=== PATIENT | male | born 1995 | race Caucasian/White ===

== ENCOUNTER 2018-11-21 16:17 | Inpatient (IN) | payer BC ==
[~2018-11-21] VITALS: Ht 172.7 cm; Wt 71.7 kg
[2018-11-21] MEDS ORDERED: AMOX1TAB16 PO (16:46)
[2018-11-21] MEDS ORDERED: CLINDAMYCIN PHOSPHATE IV 900 MG in IV DEXTROSE 5% 100 ML IV ONE (17:45)
[2018-11-21] MEDS ORDERED: ONDANSETRON 4 MG/2 ML VIAL IV ONE ×2 (17:45→19:30)
[2018-11-21] MEDS ORDERED: IV NORMAL SALINE 1000 ML BAG IV ONE (17:45)
[2018-11-21] MEDS ORDERED: HYDROMORPHONE 1 MG/1 ML DISP.SYRIN IV ONE ×3 (17:45→21:00)
[2018-11-21] MEDS ORDERED: CLINDAMYCIN PHOSPHATE 900 MG/6 ML VIAL ONE (17:48)
[2018-11-21] MEDS ORDERED: ONDANSETRON 4 MG/2 ML VIAL ONE ×2 (17:49→19:39)
[2018-11-21] MEDS ORDERED: HYDROMORPHONE 1 MG/1 ML DISP.SYRIN ONE ×3 (17:49→21:03)
[2018-11-21] MEDS ORDERED: IOHEXOL 300MG/ML 100 ML INFUS..BTL ONE (17:52)
[2018-11-21] MEDS ORDERED: SWABABLE VALVE TRANSFER SET EA MC ONE (17:52)
[2018-11-21] MEDS ORDERED: IV NORMAL SALINE 250 ML IV ONE (17:53)
[2018-11-21 18:16] LABS: BASOPHILS # (AUTO) 0.1 K/uL (0.0-8.0); BASOPHILS % (AUTO) 0.6 % (0.0-2.0); EOSINOPHILS # (AUTO) 0.4 K/uL (0.0-0.7); EOSINOPHILS % (AUTO) 4.3 % (0.0-7.0); HEMATOCRIT 41.3 % (36.7-47.1); HEMOGLOBIN 14.2 g/dL (12.5-16.3); LYMPHOCYTES # (AUTO) 2.2 K/uL (20.0-40.0); LYMPHOCYTES % (AUTO) 23.9 % (20.5-51.5); MEAN CORPUSCULAR HEMOGLOBIN 30.9 uug (23.8-33.4); MEAN CORPUSCULAR HGB CONC 34 g/dL (32.5-36.3); MEAN CORPUSCULAR VOLUME 89.6 fL (73.0-96.2); MONOCYTES # (AUTO) 0.8 K/uL (2.0-10.0); MONOCYTES % (AUTO) 8.6 % (0.0-11.0); NEUTROPHILS # (AUTO) 5.8 K/uL (1.8-8.9); NEUTROPHILS % (AUTO) 62.6 % (38.5-71.5); PLATELET COUNT (AUTO) 322 K/uL (152-348); RED BLOOD CELL COUNT(AUTO) 4.61 MIL/uL (4.06-5.63); WHITE BLOOD COUNT (AUTO) 9.3 K/uL (3.6-10.2)
--- NOTE | 2018-11-21 18:21 | NUR ---
Patient is resting comfortably on gurney while watching bedside TV. Patient's girlfriend [email or web address].
[2018-11-21 18:26] LABS: POTASSIUM 3.9 mmol/L (3.5-5.1)
[2018-11-21 18:30] LABS: BILIRUBIN,DIRECT 0.2 mg/dL (0.0-0.2); BILIRUBIN,TOTAL 0.5 mg/dL (0.2-1.0); TOTAL PROTEIN, SERUM 7.3 g/dL (6.4-8.2)
--- NOTE | 2018-11-21 18:55 | NUR ---
Patient is in CT scan@this time.
--- NOTE | 2018-11-21 19:06 | NUR ---
Patient is still in CT scan, endorsed to DARIELA Morris accordingly
--- NOTE | 2018-11-21 19:15 | NUR ---
Paged [employer] for panel call.
[2018-11-21] MEDS ORDERED: diphenhydrAMINE 50 MG/1 ML VIAL ONE (19:22)
[2018-11-21] MEDS ORDERED: methylPREDNISolone SOD SUCC 125 MG/2 ML VIAL ONE (19:23)
[2018-11-21] MEDS ORDERED: FAMOTIDINE 20 MG TABLET PO ONE (19:30)
[2018-11-21] MEDS ORDERED: diphenhydrAMINE 50 MG/1 ML VIAL IV ONE (19:30)
[2018-11-21] MEDS ORDERED: methylPREDNISolone SOD SUCC 125 MG/2 ML VIAL IV ONE (19:30)
[2018-11-21] MEDS ORDERED: IV NS 1000 ML 1,000 ML IV ONE (19:30)
[2018-11-21] MEDS ORDERED: FAMOTIDINE 20 MG TABLET ONE (19:40)
--- NOTE | 2018-11-21 20:50 | NUR ---
Pt accepted for admission to [facility] by Sylvain Patterson NP, diagnosis: facial cellulitis.
--- NOTE | 2018-11-21 20:58 | NUR ---
Report given to Naty LYLE Medsurg.
[2018-11-21] MEDS ORDERED: MAGNESIUM HYDROXIDE 30 ML LIQUID UDC PO PRN (21:15)
[2018-11-21] MEDS ORDERED: ACETAMINOPHEN 325 MG TABLET PO PRN (21:15)
[2018-11-21] MEDS ORDERED: ZOLPIDEM 5 MG TABLET PO PRN (21:15)
[2018-11-21] MEDS ORDERED: ALBUTEROL SULFATE 2.5 MG/3 ML NEBU NEB PRN (21:15)
--- NOTE | 2018-11-21 21:25 | NUR ---
Received patient from ER via wheelchair. A/O x 4. Ambulatory. Oriented patient to the room. Safety initiated. FPC assessment done. Noted right facial cellulitis. C/O pain in the right side of his face. Patient has multiple itchy bumps in the chest. Girlfriend at bedside. In room air. Call light within reach. Will continue to monitor.
[2018-11-21 21:42] VITALS: BP 111/68
[2018-11-21] MEDS ORDERED: CLINDAMYCIN PHOSPHATE IV 900 MG in IV DEXTROSE 5% 100 ML IV SCH (22:00)
[2018-11-21] MEDS: IV NS 1000 ML 1,000 ML IV PRN (22:10)
[2018-11-21] MEDS: NICOTINE 21 MG/24HR PATCH TD SCH (22:10)
[2018-11-21] MEDS: diphenhydrAMINE 50 MG/1 ML VIAL IV PRN (23:57)
[2018-11-21] MEDS: HYDROMORPHONE 1 MG/1 ML DISP.SYRIN IV PRN (23:58)
[2018-11-22 05:03] VITALS: BP 96/57
--- NOTE | 2018-11-22 06:07 | NUR ---
No changes t/o shift. Patient slept t/o shift. Patient reported pain on the right face, medication given, stated relief. Patient surrendered his vape. It is kept locked contraband closet. Remains in room air. IVF infusing. Good urine output. Vitals signs stable. All meds given as ordered. All needs met.
[2018-11-22 07:26] LABS: HEMATOCRIT 33.3 % (36.7-47.1); HEMOGLOBIN 11.4 g/dL (12.5-16.3); LYMPHOCYTES # (AUTO) 0.9 K/uL (20.0-40.0); LYMPHOCYTES % (AUTO) 11.7 % (20.5-51.5); MEAN CORPUSCULAR HGB CONC 34 g/dL (32.5-36.3); MEAN CORPUSCULAR VOLUME 90.1 fL (73.0-96.2); MONOCYTES # (AUTO) 0.1 K/uL (2.0-10.0); MONOCYTES % (AUTO) 1.6 % (0.0-11.0); NEUTROPHILS # (AUTO) 6.7 K/uL (1.8-8.9); NEUTROPHILS % (AUTO) 86.7 % (38.5-71.5); PLATELET COUNT (AUTO) 262 K/uL (152-348); WHITE BLOOD COUNT (AUTO) 7.7 K/uL (3.6-10.2)
[2018-11-22 07:30] LABS: ALANINE AMINOTRANSFERASE 454 U/L (16-63); ALKALINE PHOSPHATASE 47 U/L (50-136); ASPARTATE AMINOTRANSFERASE 88 U/L (15-37); BILIRUBIN,TOTAL 0.5 mg/dL (0.2-1.0); CARBON DIOXIDE 22 mmol/L (21-32); CHLORIDE 114 mmol/L (98-107); CHOLESTEROL 104 mg/dL (<200); CREATININE 0.7 mg/dL (0.6-1.3); GLUCOSE 104 mg/dL (74-106); HDL CHOLESTEROL 45 mg/dL (40-60); MAGNESIUM 1.5 mg/dL (1.8-2.4); PHOSPHOROUS 3.6 mg/dL (2.5-4.9); TOTAL PROTEIN, SERUM 5.8 g/dL (6.4-8.2); UREA NITROGEN, BLOOD 7 mg/dL (7-18)
[2018-11-22 07:54] LABS: TRIGLYCERIDES 15 MG/DL (30-150)
[2018-11-22] MEDS: FAMOTIDINE 20 MG TABLET PO SCH (08:04)
[2018-11-22] MEDS: HYDROCODONE/APAP 5-325MG TABLET PO PRN (08:04)
[2018-11-22] MEDS: NICOTINE 21 MG/24HR PATCH TD SCH (08:05)
[2018-11-22] MEDS ORDERED: FAMOTIDINE. 20 MG/2 ML VIAL IV SCH (09:00)
[2018-11-22] MEDS: MAGNESIUM SULFATE/D5W 100 ML IV SCH ×2 (09:31→10:01)
[2018-11-22] MEDS: CLINDAMYCIN PHOSPHATE IV 900 MG in IV DEXTROSE 5% 100 ML IV SCH ×2 (10:01→17:16)
[2018-11-22] MEDS: HYDROMORPHONE 1 MG/1 ML DISP.SYRIN IV PRN ×3 (11:07→21:34)
[2018-11-22 11:48] VITALS: BP 119/56
[2018-11-22] MEDS: diphenhydrAMINE 50 MG/1 ML VIAL IV PRN ×2 (14:33→21:39)
[2018-11-22] MEDS: IV NS 1000 ML 1,000 ML IV PRN (14:35)
[2018-11-22 15:49] VITALS: BP 121/62
[2018-11-22 20:00] VITALS: BP 129/64
--- NOTE | 2018-11-22 20:00 | NUR ---
RECEIVED PATIENT AWAKE IN BED WITH GIRLFRIEND AT BEDSIDE. PATIENT IS A/O X4. DENIES PAIN AT THIS TIME. REDNESS AND MINIMAL SWELLING NOTED TO RIGHT CHEEK. PATIENT WAITING FOR I.D TO COME AND CONSULT. VS WNL. IVF INFUSING WELL TO LEFT FA. NO RESP. DISTRESS NOTED. CALL LIGHT IN REACH. ALL NEEDS ATTENDED. WILL CONTINUE TO MONITOR AND ASSESS.
[2018-11-23] MEDS: CLINDAMYCIN PHOSPHATE IV 900 MG in IV DEXTROSE 5% 100 ML IV SCH ×3 (02:04→18:02)
[2018-11-23 05:30] VITALS: BP 125/60
[2018-11-23] MEDS: IV NS 1000 ML 1,000 ML IV PRN ×2 (05:33→21:38)
--- NOTE | 2018-11-23 07:56 | NUR ---
Patient resting comfortably in bed at this time. No signs of distress. Girlfriend at bedside. Pain management will be assessed and managed as needed per MD orders. Stable condition at this time. Safety measures implemented. Will continue to monitor throughout shift.
[2018-11-23] MEDS: FAMOTIDINE 20 MG TABLET PO SCH (08:12)
[2018-11-23] MEDS: NICOTINE 21 MG/24HR PATCH TD SCH (08:16)
--- NOTE | 2018-11-23 09:50 | NUR ---
RECEIVED ORDER FOR DISCHARGE.
[2018-11-23] MEDS ORDERED: HYDR-3326 PO (09:52)
[2018-11-23] MEDS ORDERED: CLIN300C11 PO (09:52)
--- NOTE | 2018-11-23 10:15 | NUR ---
PT STATES HAVING FACIAL PAIN OF 9-10. SPOKE WITH DOCTOR DIAZ. STATED THE PT COULD STAY OVERNIGHT FOR PAIN MANAGEMENT. DISCHARGE ORDER STILL IN PLACE. WILL ADMINISTER PAIN REAGAN ACCORDINGLY. WILL CONTINUE TO MONITOR.
[2018-11-23] MEDS: HYDROMORPHONE 1 MG/1 ML DISP.SYRIN IV PRN (10:56)
[2018-11-23 11:23] VITALS: BP 106/64
[2018-11-23] MEDS: ONDANSETRON 4 MG/2 ML VIAL IV PRN (11:50)
--- NOTE | 2018-11-23 12:51 | NUR ---
PT IS RESTING COMFORTABLY IN ROOM. DENIES PAIN AND NAUSEA AT THIS TIME. NO DISTRESS NOTED. PT IS MEDICATION COMPLIANT. WILL CONTINUE TO MONITOR.
[2018-11-23 16:06] VITALS: BP 120/58
--- NOTE | 2018-11-23 18:00 | NUR ---
Pt took shower. Pt is resting comfortably in bed. No signs of SOB or acute distress, Pt medication compliant. Pain meds given. Will continue to monitor.
[2018-11-23] MEDS: HYDROCODONE/APAP 5-325MG TABLET PO PRN ×2 (18:01→22:26)
--- NOTE | 2018-11-23 19:30 | NUR ---
Received patient sitting in bed, A&Ox4. Not in distress at this time. Girlfriend at bedside. IV on R FA gauge #20, intact and patent w/ NS @75cc/hr infusing. Bed kept in low and locked position w/ side rails x 2. Call light in reach. Will cont to monitor
[2018-11-23 20:00] VITALS: BP 107/54
[2018-11-24] MEDS: CLINDAMYCIN PHOSPHATE IV 900 MG in IV DEXTROSE 5% 100 ML IV SCH ×2 (01:49→09:21)
[2018-11-24 04:44] VITALS: BP 103/59
--- NOTE | 2018-11-24 06:23 | NUR ---
Patient slept through out the night. No complaints of pain at this time. All needs attended. Will endorse accordingly
[2018-11-24 06:53] VITALS: BP 100/53
[2018-11-24] MEDS: FAMOTIDINE 20 MG TABLET PO SCH (08:55)
[2018-11-24] MEDS: NICOTINE 21 MG/24HR PATCH TD SCH ×2 (08:56→09:00)
[2018-11-24] MEDS: HYDROMORPHONE 1 MG/1 ML DISP.SYRIN IV PRN (09:03)
[2018-11-24] MEDS: ONDANSETRON 4 MG/2 ML VIAL IV PRN (09:08)
[2018-11-24 11:13] VITALS: BP 115/58
--- NOTE | 2018-11-24 11:34 | NUR ---
IV D/C'D HOME INSTRUCTIONS REVIEWED WITH PT. BY TRAINING [employer] MANAGER IN TO REVIEW FOLLOW-UP AND GIVE PT. REFERRAL CLINIC NUMBERS. PHARMACY IN TO REVIEW HOME MEDS. DISCHARGED TO FRIEND.
== END 2018-11-24 11:40 | disposition home or self-care (01) | DRG 603 ==
LOC: ER 16:19 → MEDSURG3 21:00
PROVIDERS: ADMIT Nurse Practitioner Acute Care; ATTEND Nurse Practitioner Acute Care
DX: L03.211 Cellulitis of face (principal); Z86.14 Personal history of Methicillin resistant Staphylococcus aureus infection; F17.210 Nicotine dependence, cigarettes, uncomplicated; J45.909 Unspecified asthma, uncomplicated; R74.0 Nonspecific elevation of levels of transaminase and lactic acid dehydrogenase [LDH]; F19.21 Other psychoactive substance dependence, in remission
CPT/HCPCS: 36415; 70487; 83735; 84100; 85025; 87040; A4663; G0378; J1170; J1200; J2405; J2930; J3475; J3490; J7030; J7050; J7060; Q9967